=== PATIENT | female | born 1975 | race Hispanic/Latino ===

== ENCOUNTER → 2017-08-17 | Outpatient (CLI) | payer OTHER ==
[~2017-08-17] MED LIST: LIDOCAINE HCL 1% LOCAL INJ 20 ML VIAL ONE
--- NOTE | 2017-08-17 15:56 | Diagnostic Imaging Report ---
#[id number] - [id number] ULTRASOUND GUIDED BIOPSY: 08/17/2017 PATIENT CONSENT: According to [facility] requirements, a time out was performed, correct site was localized and the patient was consented. PROCEDURE DESCRIPTION: Written informed consent for the procedure was obtained. A full time babysitter out was taken to confirm patient and procedure. Using full barrier sterile technique, 1% Lidocaine local anesthesia, and real time ultrasound guidance, the mass at 3 o'clock in the left breast was aspirated using an 18 gauge needle. A total of 10.5 cc's of cloudy aspirate was obtained and submitted for histology. A sterile bandage was applied at the entry site. The patient tolerated the procedure well. IMPRESSION: ULTRASOUND GUIDED BIOPSY Return to annual mammogram screening schedule is recommended. Niles cooper/sandeep:08/17/2017 14:48:47 Hedis Review Nurse: LIANE ORTEZ RT, [facility] [id number]
== END ==
LOC: US 10:52
PROVIDERS: ATTEND Surgery
DX: N63.20 Unspecified lump in the left breast, unspecified quadrant (principal)
CPT/HCPCS: 19083; 88112; 88305; J2001